=== PATIENT | female | born 1995 | race Caucasian/White ===

== ENCOUNTER 2017-11-12 03:48 | Emergency (ER) | payer SELFPAY ==
[~2017-11-12] VITALS: Ht 170.2 cm; Wt 60.0 kg
[2017-11-12 03:55] VITALS: BP 149/86; PULSE 107; RESP 18; TEMP 97.3; O2SAT 100
[2017-11-12] MEDS ORDERED: ZOFR4TAB3 SL (04:15)
[2017-11-12] MEDS ORDERED: SODIUM CHLORIDE 0.9% FLUSH 10 ML FLUSH IV FLUSH PRN (04:15)
--- NOTE | 2017-11-12 04:16 | PD ---
HPI Chief Complaint: General Weakness Time Seen by Provider: 04:03 Travel History International Travel<30 days: No Contact w/Intl Traveler<30days: No Traveled to known affect area: No History of Present Illness HPI The patient is 22 years old and describes nausea vomiting throughout the course of today. She reports drinking some alcohol today. She ingested "Isaura" at 1 PM the day prior, about 13 hours prior to arrival. Pt believes she is dehydrated for that reason. She has no abdominal pain. No chest pain or shortness of breath. Any oral intake leads to more vomiting. She denies drug abuse otherwise. Timing constant. PFSH Past Medical History Medical History: Denies Significant Hx Diminished Hearing: No Tetanus Vaccination: < 5 Years Influenza Vaccination: No ?: Not LMP: 11/05/2017 Past Surgical History Surgical History: No Previous Surgery Social History Alcohol Use: Yes (3x week) Tobacco Use: No Substance Use: Yes (marijauna, extasy today) Allergies-Medications (Allergen,Severity, Reaction): Coded Allergies: No Known Allergies (Unverified , 11/12/17) Reported Meds & Prescriptions Reported Meds & Active Scripts Active Zofran Odt (Ondansetron Odt) 4 Mg Tab 4 Mg SL Q8HR PRN Review of Systems Except as stated in HPI: all other systems reviewed are Neg General / Constitutional: No: Fever, Chills Physical Exam Narrative GENERAL: 22-year-old female pleasant well-nourished well-developed no acute distress Vital Signs Date Time Temp Pulse Resp B/P (MAP) Pulse Ox O2 Delivery O2 Flow Rate FiO2 11/12/17 03:55 97.3 107 18 149/86 (107) 100 SKIN: Warm and dry. HEAD: Atraumatic. Normocephalic. EYES: Pupils equal and round. No scleral icterus. No injection or drainage. ENT: No nasal bleeding or discharge. Mucous membranes pink and moist. NECK: Trachea midline. No JVD. CARDIOVASCULAR: Heart rates about 100. RESPIRATORY: No accessory muscle use. Clear to auscultation. Breath sounds equal bilaterally. GASTROINTESTINAL: Abdomen soft, non-tender, nondistended. Hepatic and splenic margins not palpable. MUSCULOSKELETAL: Extremities without clubbing, cyanosis, or edema. No obvious deformities. NEUROLOGICAL: Awake and alert. No obvious cranial nerve deficits. Motor grossly within normal limits. Five out of 5 muscle strength in the arms and legs. Normal speech. PSYCHIATRIC: Appropriate mood and affect; insight and judgment normal. Data Data Last Documented VS Vital Signs Date Time Temp Pulse Resp B/P (MAP) Pulse Ox O2 Delivery O2 Flow Rate FiO2 11/12/17 04:52 100 Room Air 11/12/17 03:55 97.3 107 18 149/86 (107) Orders Orders Basic Metabolic Panel (Bmp) (11/12/17 04:06) Complete Blood Count With Diff (11/12/17 04:06) Urinalysis - C+S If Indicated (11/12/17 04:06) Iv Access Insert/Monitor (11/12/17 04:06) Ecg Monitoring (11/12/17 04:06) Oximetry (11/12/17 04:06) Sodium Chlor 0.9% 1000 Ml Inj (Ns 1000 M (11/12/17 04:06) Sodium Chloride 0.9% Flush (Ns Flush) (11/12/17 04:15) Ondansetron Odt (Zofran Odt) (11/12/17 04:15) Ed Urine Pregnancytest Poc (11/12/17 04:06) Drug Screen, Random Urine (11/12/17 05:10) Ed Discharge Order (11/12/17 05:36) Labs Laboratory Tests Test 11/12/17 04:20 11/12/17 05:10 White Blood Count 14.5 TH/MM3 Red Blood Count 4.01 MIL/MM3 Hemoglobin 12.1 GM/DL Hematocrit 35.6 % Mean Corpuscular Volume 88.8 FL Mean Corpuscular Hemoglobin 30.2 PG Mean Corpuscular Hemoglobin Concent 34.0 % Red Cell Distribution Width 13.5 % Platelet Count 340 TH/MM3 Mean Platelet Volume 7.2 FL Neutrophils (%) (Auto) 81.9 % Lymphocytes (%) (Auto) 10.9 % Monocytes (%) (Auto) 6.8 % Eosinophils (%) (Auto) 0.0 % Basophils (%) (Auto) 0.4 % Neutrophils # (Auto) 11.8 TH/MM3 Lymphocytes # (Auto) 1.6 TH/MM3 Monocytes # (Auto) 1.0 TH/MM3 Eosinophils # (Auto) 0.0 TH/MM3 Basophils # (Auto) 0.1 TH/MM3 CBC Comment DIFF FINAL Differential Comment Blood Urea Nitrogen 7 MG/DL Creatinine 0.69 MG/DL Random Glucose 101 MG/DL Calcium Level 8.9 MG/DL Sodium Level 131 MEQ/L Potassium Level 3.9 MEQ/L Chloride Level 93 MEQ/L Carbon Dioxide Level 25.7 MEQ/L Anion Gap 12 MEQ/L Estimat Glomerular Filtration Rate 107 ML/MIN Urine Color LIGHT-YELLOW Urine Turbidity CLEAR Urine pH 7.0 Urine Specific [place] 1.004 Urine Protein NEG mg/dL Urine Glucose (UA) NEG mg/dL Urine Ketones 10 mg/dL Urine Occult Blood NEG Urine Nitrite NEG Urine Bilirubin NEG Urine Urobilinogen LESS THAN 2.0 MG/DL Urine Leukocyte Esterase NEG Urine Squamous Epithelial Cells <1 /hpf Microscopic Urinalysis Comment CULT NOT INDICATED Urine Opiates Screen NEG Urine Barbiturates Screen NEG Urine Amphetamines Screen NEG Urine Benzodiazepines Screen NEG Urine Cocaine Screen NEG Urine Cannabinoids Screen NEG MDM Medical Decision Making Medical Screen Exam Complete: Yes Emergency Medical Condition: Yes Medical Record Reviewed: Yes Differential Diagnosis Electrolyte imbalance, dehydration, kidney injury, MDMA abuse Narrative Course Patient has received IV fluids here. No vomiting in the ED. Patient did not ingest the MDMA as part of an intent to harm herself. CBC & BMP Diagram 11/12/17 04:20 Calcium Level 8.9 UA: No UTI UPreg negative U tox negative Diagnosis Primary Impression: MDMA abuse Additional Impressions: Vomiting Qualified Codes: R11.10 - Vomiting, unspecified Hyponatremia Referrals: Primary Care Physician call for appointment Med/Other Pt SpecificInfo: Prescription(s) given Scripts Ondansetron Odt (Zofran Odt) 4 Mg Tab 4 MG SL Q8HR Y for Nausea/Vomiting, #10 TAB 0 Refills Prov: Aditya Schumacher MD 11/12/17 Disposition: 01 DISCHARGE HOME Condition: Stable Aditya Schumacher MD November 12, 2017 04:16
[2017-11-12 04:37] LABS: AUTOMATED NEUTROPHIL # 11.8 TH/MM3 (1.8-7.7); BASOPHIL # 0.1 TH/MM3 (0-0.2); BASOPHIL % 0.4 % (0.0-2.0); HEMATOCRIT 35.6 % (35.0-46.0); HEMOGLOBIN 12.1 GM/DL (11.6-15.3); LYMPH % 10.9 % (9.0-44.0); LYMPHOCYTE # 1.6 TH/MM3 (1.0-4.8); MEAN CELL VOLUME 88.8 FL (80.0-100.0); MEAN CORPUSCULAR HEMOGLOBIN 30.2 PG (27.0-34.0); MEAN PLATELET VOLUME 7.2 FL (7.0-11.0); MONO % 6.8 % (0.0-8.0); NEUT % 81.9 % (16.0-70.0); PLATELET COUNT 340 TH/MM3 (150-450); RED BLOOD COUNT 4.01 MIL/MM3 (4.00-5.30); RED CELL DISTRIBUTION WIDTH 13.5 % (11.6-17.2); WHITE BLOOD COUNT 14.5 TH/MM3 (4.0-11.0)
[2017-11-12] MEDS: ONDANSETRON ODT 4 MG TAB PO ONE (04:49)
[2017-11-12] MEDS: SODIUM CHLOR 0.9% 1000 ML INJ 1,000 ML IV SCH (04:50)
[2017-11-12 04:51] LABS: BICARBONATE 25.7 MEQ/L (21.0-32.0); CALCIUM 8.9 MG/DL (8.5-10.1); CREATININE 0.69 MG/DL (0.50-1.00)
[2017-11-12 04:52] VITALS: O2SAT 100
[2017-11-12 05:25] LABS: BILIRUBIN, URINE NEG (NEG); BLOOD, URINE NEG (NEG); GLUCOSE,URINE NEG (NEG); KETONE, URINE 10 mg/dL (NEG); NITRITE,URINE NEG (NEG); SQUAMOUS EPITHELIAL CELL URINE <1 /hpf (0-5); URINE COLOR LIGHT-YELLOW (YELLW/STRAW); URINE LEUKOCYTE ESTERASE NEG (NEG)
[2017-11-12 05:51] VITALS: BP 150/70; PULSE 91; RESP 16; O2SAT 100
== END 2017-11-12 05:53 | disposition home or self-care (01) ==
LOC: NEPE 03:48
DX: F16.10 Hallucinogen abuse, uncomplicated (principal); R11.10 Vomiting, unspecified; E87.1 Hypo-osmolality and hyponatremia
CPT/HCPCS: 80048; 80307; 81001; 84703; 85025; 99283; J7030